=== PATIENT | female | born 1990 | race Caucasian/White ===

== ENCOUNTER 2019-03-02 11:04 | Emergency (ER) | payer BC ==
[2019-03-02 11:12] VITALS: BP 131/85; PULSE 77; RESP 16; TEMP 98.1
[2019-03-02 12:17] LABS: Appearance,Urine Clear (Clear); Bilirubin,Urine Negative (Negative); Blood,Urine Negative (Negative); Color,Urine Light Yellow; Glucose,Urine (UA) Negative (Negative); Ketones,Urine Negative (Negative); Leukocyte Esterase,Urine Negative (Negative); Nitrite,Urine Negative (Negative); Protein,Urine Negative (Negative); Specific Gravity,Urine 1.002 (1.001-1.035); Urobilinogen,Urine <2.0 mg/dL (<2.0)
--- NOTE | 2019-03-02 12:43 | ED ---
Female Urogenital HPI - General Chief complaint: Vaginal Bleeding Stated complaint: early /spotting Time Seen by Provider: 03/02/19 11:30 Source: patient, RN notes reviewed Mode of arrival: ambulatory Limitations: no limitations - History of Present Illness Initial comments: 29-year-old female presents emergency Department with chief complaint of vaginal bleeding early . Patient states started started on Saturday but has been very light. Patient states that she has very minimal cramping type pain. Patient states that she has not follow-up with her [employer] at this time. Patient did contact him and recommended to come emergency department. Patient denies any constipation or diarrhea no dysuria no hematuria. Patient is A0 Last Menstrual Period: 01/25/19 - Related Data Home Medications Medication Instructions Recorded Confirmed Control 1 tab PO DAILY 10/30/14 10/30/14 Allergies Allergy/AdvReac Type Severity Reaction Status Date / Time No Known Allergies Allergy Verified 03/02/19 11:11 Review of Systems ROS Statement: Those systems with pertinent positive or pertinent negative responses have been documented in the HPI. ROS Other: All systems not noted in ROS Statement are negative. Past Medical History Past Medical History: No Reported History Additional Past Medical History / Comment(s): Abnormal Pap smears, genital HSV History of Any Multi-Drug Resistant Organisms: None Reported Past Surgical History: No Surgical Hx Reported Past Psychological History: No Psychological Hx Reported Smoking Status: Never smoker Past Alcohol Use History: None Reported Past Drug Use History: None Reported General Exam Limitations: no limitations General appearance: alert, in no apparent distress Head exam: Present: atraumatic, normocephalic, normal inspection Eye exam: Present: normal appearance, PERRL, EOMI. Absent: scleral icterus, conjunctival injection, periorbital swelling Respiratory exam: Present: normal lung sounds bilaterally. Absent: respiratory distress, wheezes, rales, rhonchi, stridor Cardiovascular Exam: Present: regular rate, normal rhythm, normal heart sounds. Absent: systolic murmur, diastolic murmur, rubs, gallop, clicks GI/Abdominal exam: Present: soft, normal bowel sounds. Absent: distended, tenderness, guarding, rebound, rigid Back exam: Absent: CVA tenderness (R), CVA tenderness (L) Neurological exam: Present: alert, oriented X3 Skin exam: Present: warm, dry, intact, normal color. Absent: rash Course Vital Signs 03/02/19 11:09 Temperature 98.1 F Pulse Rate 77 Respiratory 16 Rate Blood Pressure 131/85 O2 Sat by Pulse 100 Oximetry Medical Decision Making - Medical Decision Making Ultrasound does not show definite IUP, beta hCG is 1129. Patient will have repeat hCG in 2 days. Patient diagnosed with threatened miscarriage patient does not require RhoGAM as she is AB+. - Lab Data Lab Results 03/02/19 03/02/19 03/02/19 Range/Units 11:55 11:55 11:55 HCG, Quant 1169.2 mIU/mL Urine Color Light Yellow Urine Appearance Clear (Clear) Urine pH 6.0 (5.0-8.0) Ur Specific [place] 1.002 (1.001-1.035) Urine Protein Negative (Negative) Urine Glucose (UA) Negative (Negative) Urine Ketones Negative (Negative) Urine Blood Negative (Negative) Urine Nitrite Negative (Negative) Urine Bilirubin Negative (Negative) Urine Urobilinogen <2.0 (<2.0) mg/dL Ur Leukocyte Esterase Negative (Negative) Blood Type AB Positive Blood Type Recheck AB Pos Bld Type Recheck Status No Disposition Clinical Impression: Threatened miscarriage Disposition: HOME SELF-CARE Condition: Stable Instructions (If sedation given, give patient instructions): Threatened Miscarriage (ED) Additional Instructions: Please return to the Emergency Department if symptoms worsen or any other concerns. Is patient prescribed a controlled substance at d/c from ED?: No Referrals: Bernard Humphrey MD [Primary Care Provider] - 1-2 days Time of Disposition: 13:24
--- NOTE | 2019-03-02 13:02 | US ---
EXAMINATION TYPE: Transabdominal DATE OF EXAM: 03/02/2019 12:51 PM COMPARISON: NONE CLINICAL HISTORY: Bleeding in . cramping and bleeding in early OB, EXAM PERFORMED: OBTA/OBTV EXAM MEASUREMENTS: GESTATIONAL AGE / DATING Physician Established: Not yet established Dates by LMP: (5 weeks/1 days) EDC: 11/01/2019 Dates by First Scan: No previous this is first scan Dates by Current Scan for: No IUP seen at this time MATERNAL ANATOMY Uterus: 8.6 x 4.9 x 4.7cm, retroverted Right Ovary: 2.6 x 1.8 x 2.2cm Left Ovary: 2.0 x 1.2 x 1.0cm Post CDS / Adnexa: varicose vessels seen, wnl Presence of free fluid: no Presence of corpus luteal cyst: yes on the right = 2.5cm Presence of subchorionic bleed: no GESTATION / SURVEY IUP: No IUP seen at this time Date of LMP: 01/25/2019 Beta HcG (if available): pending IMPRESSION: 1. No definable intrauterine visualized. If there is a positive beta-hCG then differential diagnosis would include normal too early to detect, missed or ectopic . Correlate with serial beta hCG and pelvic ultrasound as clinically warranted.
== END 2019-03-02 13:42 | disposition home or self-care (01) ==
LOC: EC 11:04
DX: O20.0 Threatened abortion (principal); Z67.30 Type AB blood, Rh positive; Z3A.01 Less than 8 weeks gestation of pregnancy
CPT/HCPCS: 36415; 76801; 76817; 81003; 84702; 86900; 86901; 99284

== ENCOUNTER → 2019-03-04 | Outpatient (CLI) | payer BC | END | disposition home or self-care (01) | LOC: LABWHC1 13:43 | PROVIDERS: ATTEND Physician Assistant | DX: O20.0 Threatened abortion (principal) | CPT/HCPCS: 36415; 84702 ==

== ENCOUNTER 2019-04-09 11:15 | Emergency (ER) | payer BC ==
[2019-04-09] MEDS ORDERED: ACETAMINOPHEN TAB 500 MG TAB PO STA (12:14)
[2019-04-09] MEDS ORDERED: SODIUM CHLORIDE 0.9% 1,000 ML IV STA (12:14)
--- NOTE | 2019-04-09 12:16 | ED ---
General Adult HPI - General Chief complaint: Abdominal Pain Stated complaint: 11 wks /cramping/vaginal bleeding Time Seen by Provider: 04/09/19 11:56 Source: patient, RN notes reviewed Mode of arrival: ambulatory Limitations: no limitations - History of Present Illness Initial comments: Patient 29-year-old female who is G2, P1 presented to the emergency room today with a chief complaint of vaginal bleeding that started when she was at work thi s morning. She does admit that she had some lower abdominal cramping. She had some increased bleeding. States bleeding has somewhat slow down at this time but still experiencing some cramping lower abdomen. Patient does not that she did have a previous ultrasound in this showing good IUP. Patient denies any other complaints or symptoms currently. Patient denies any recent fever, chills, shortness of breath, chest pain, back pain, nausea or vomiting, headaches or visual changes, or any other complaints. - Related Data Home Medications Medication Instructions Recorded Confirmed Control 1 tab PO DAILY 10/30/14 10/30/14 Allergies Allergy/AdvReac Type Severity Reaction Status Date / Time No Known Allergies Allergy Verified 04/09/19 11:31 Review of Systems ROS Statement: Those systems with pertinent positive or pertinent negative responses have been documented in the HPI. ROS Other: All systems not noted in ROS Statement are negative. Past Medical History Past Medical History: No Reported History Additional Past Medical History / Comment(s): Abnormal Pap smears, genital HSV History of Any Multi-Drug Resistant Organisms: None Reported Past Surgical History: No Surgical Hx Reported Past Psychological History: No Psychological Hx Reported Smoking Status: Never smoker Past Alcohol Use History: None Reported Past Drug Use History: None Reported General Exam - General Exam Comments Initial Comments: General: The patient is awake and alert, in no distress, and does not appear acutely ill. Neck: The neck is supple Cardiovascular: There is a regular rate and rhythm. No murmur, rub or gallop is appreciated. Respiratory: Lungs are clear to auscultation, respirations are non-labored, breath sounds are equal. No wheezes, stridor, rales, or rhonchi. Gastrointestinal: Abdomen soft on palpation. Does have tenderness in the lower abdomen on palpation. Rebound, guarding. Musculoskeletal: Normal ROM, no tenderness. Neurological: A&O x 3. CN II-XII intact, There are no obvious motor or sensory deficits. Coordination appears grossly intact. Speech is normal. Skin: Skin is warm and dry and no rashes or lesions are noted. Psychiatric: Cooperative, appropriate mood & affect, normal judgment. Limitations: no limitations Course Vital Signs 04/09/19 11:31 Temperature 97.8 F Pulse Rate 100 Respiratory 16 Rate Blood Pressure 128/81 O2 Sat by Pulse 100 Oximetry Medical Decision Making - Medical Decision Making Reexamined at this times resting covered. Patient does admit that the bleeding has slowed down. She states she's not had a change pain here in emergency room. Patient admits to some cramping lower abdomen. Patient did have some which does show some IUP measuring 10 weeks 1 day. Heart rate 170. There is a subchorionic bleed that is seen. Patient's Rh+. Blood work is stable. Patient's vitals are stable. Case discussed with attending physician Dr. Cristina. Patient will be discharged home to follow-up with GLASS TECHNICIAN/INSTALLER over the next 2 days. Advised return if any symptoms increase worsen. She states understanding and is in agreement. - Lab Data Result diagrams: 04/09/19 12:00 04/09/19 12:00 Lab Results 04/09/19 04/09/19 04/09/19 Range/Units 12:00 12:00 12:00 WBC 7.8 (3.8-10.6) k/uL RBC 4.60 (3.80-5.40) m/uL Hgb 13.7 (11.4-16.0) gm/dL Hct 39.5 (34.0-46.0) % MCV 85.8 (80.0-100.0) fL MCH 29.8 (25.0-35.0) pg MCHC 34.7 (31.0-37.0) g/dL RDW 13.1 (11.5-15.5) % Plt Count 328 (150-450) k/uL Neutrophils % 72 % Lymphocytes % 22 % Monocytes % 3 % Eosinophils % 1 % Basophils % 0 % Neutrophils # 5.6 (1.3-7.7) k/uL Lymphocytes # 1.8 (1.0-4.8) k/uL Monocytes # 0.2 (0-1.0) k/uL Eosinophils # 0.1 (0-0.7) k/uL Basophils # 0.0 (0-0.2) k/uL Sodium 135 L (137-145) mmol/L Potassium 3.9 (3.5-5.1) mmol/L Chloride 101 (98-107) mmol/L Carbon Dioxide 23 (22-30) mmol/L Anion Gap 11 mmol/L BUN 11 (7-17) mg/dL Creatinine 0.54 (0.52-1.04) mg/dL Est GFR (CKD-EPI)AfAm >90 (>60 ml/min/1.73 sqM) Est GFR (CKD-EPI)NonAf >90 (>60 ml/min/1.73 sqM) Glucose 85 (74-99) mg/dL Calcium 9.7 (8.4-10.2) mg/dL Total Bilirubin 0.6 (0.2-1.3) mg/dL AST 29 (14-36) U/L ALT 23 (4-34) U/L Alkaline Phosphatase 54 (38-126) U/L Total Protein 7.6 (6.3-8.2) g/dL Albumin 4.6 (3.5-5.0) g/dL Urine Color Urine Appearance (Clear) Urine pH (5.0-8.0) Ur Specific [place] (1.001-1.035) Urine Protein (Negative) Urine Glucose (UA) (Negative) Urine Ketones (Negative) Urine Blood (Negative) Urine Nitrite (Negative) Urine Bilirubin (Negative) Urine Urobilinogen (<2.0) mg/dL Ur Leukocyte Esterase (Negative) Ur Squamous Epith Cells (0-4) /hpf Urine Bacteria (None) /hpf Urine Mucus (None) /hpf Blood Type AB Positive Blood Type Recheck AB Pos Bld Type Recheck Status No 04/09/19 Range/Units 12:00 WBC (3.8-10.6) k/uL RBC (3.80-5.40) m/uL Hgb (11.4-16.0) gm/dL Hct (34.0-46.0) % MCV (80.0-100.0) fL MCH (25.0-35.0) pg MCHC (31.0-37.0) g/dL RDW (11.5-15.5) % Plt Count (150-450) k/uL Neutrophils % % Lymphocytes % % Monocytes % % Eosinophils % % Basophils % % Neutrophils # (1.3-7.7) k/uL Lymphocytes # (1.0-4.8) k/uL Monocytes # (0-1.0) k/uL Eosinophils # (0-0.7) k/uL Basophils # (0-0.2) k/uL Sodium (137-145) mmol/L Potassium (3.5-5.1) mmol/L Chloride (98-107) mmol/L Carbon Dioxide (22-30) mmol/L Anion Gap mmol/L BUN (7-17) mg/dL Creatinine (0.52-1.04) mg/dL Est GFR (CKD-EPI)AfAm (>60 ml/min/1.73 sqM) Est GFR (CKD-EPI)NonAf (>60 ml/min/1.73 sqM) Glucose (74-99) mg/dL Calcium (8.4-10.2) mg/dL Total Bilirubin (0.2-1.3) mg/dL AST (14-36) U/L ALT (4-34) U/L Alkaline Phosphatase (38-126) U/L Total Protein (6.3-8.2) g/dL Albumin (3.5-5.0) g/dL Urine Color Colorless Urine Appearance Clear (Clear) Urine pH 6.0 (5.0-8.0) Ur Specific [place] 1.003 (1.001-1.035) Urine Protein Negative (Negative) Urine Glucose (UA) Negative (Negative) Urine Ketones Negative (Negative) Urine Blood Small H (Negative) Urine Nitrite Negative (Negative) Urine Bilirubin Negative (Negative) Urine Urobilinogen <2.0 (<2.0) mg/dL Ur Leukocyte Esterase Negative (Negative) Ur Squamous Epith Cells <1 (0-4) /hpf Urine Bacteria Occasional H (None) /hpf Urine Mucus Rare H (None) /hpf Blood Type Blood Type Recheck Bld Type Recheck Status Disposition Clinical Impression: Vaginal bleeding during , Subchorionic hematoma in first trimester Disposition: HOME SELF-CARE Condition: Good Instructions (If sedation given, give patient instructions): Threatened Miscarriage (ED) Additional Instructions: Please follow-up with GLASS TECHNICIAN/INSTALLER over the next 2 days. Return to emergency room if any symptoms increase or worsen or for any concerns. Is patient prescribed a controlled substance at d/c from ED?: No Referrals: Bernard Humphrey MD [Primary Care Provider] - 1-2 days María Elder MD [STAFF PHYSICIAN] - 1-2 days Time of Disposition: 14:01
[2019-04-09 12:43] LABS: Basophils % (A) 0 %; Eosinophils # (A) 0.1 k/uL (0-0.7); Eosinophils % (A) 1 %; HCT 39.5 % (34.0-46.0); HGB 13.7 gm/dL (11.4-16.0); Lymphocytes # (A) 1.8 k/uL (1.0-4.8); Lymphocytes % (A) 22 %; MCH 29.8 pg (25.0-35.0); MCHC 34.7 g/dL (31.0-37.0); MCV 85.8 fL (80.0-100.0); Mean Platelet Volume 7.2; Monocytes # (A) 0.2 k/uL (0-1.0); Monocytes % (A) 3 %; Neutrophils # (A) 5.6 k/uL (1.3-7.7); Neutrophils % (A) 72 %; Platelet Count 328 k/uL (150-450); RDW 13.1 % (11.5-15.5); WBC 7.8 k/uL (3.8-10.6)
[2019-04-09 12:44] LABS: Appearance,Urine Clear (Clear); Bacteria,Urine Occasional /hpf; Bilirubin,Urine Negative (Negative); Blood,Urine Small (Negative); Color,Urine Colorless; Glucose,Urine (UA) Negative (Negative); Ketones,Urine Negative (Negative); Leukocyte Esterase,Urine Negative (Negative); Mucus,Urine Rare /hpf; Nitrite,Urine Negative (Negative); Protein,Urine Negative (Negative); Specific Gravity,Urine 1.003 (1.001-1.035); Squamous Epithelial Cell,Urine <1 /hpf (0-4); Urobilinogen,Urine <2.0 mg/dL (<2.0)
[2019-04-09 13:00] LABS: ALT 23 U/L (4-34); AST 29 U/L (14-36); African American GFR (CKD) >90 (>60 ml/min/1.73 sqM); Albumin 4.6 g/dL (3.5-5.0); Alkaline Phosphatase 54 U/L (38-126); Anion Gap 11 mmol/L; Blood Urea Nitrogen 11 mg/dL (7-17); Calcium 9.7 mg/dL (8.4-10.2); Carbon Dioxide 23 mmol/L (22-30); Chloride 101 mmol/L (98-107); Glucose 85 mg/dL (74-99); Non-African American GFR(CKD) >90 (>60 ml/min/1.73 sqM); Potassium 3.9 mmol/L (3.5-5.1); Sodium 135 mmol/L (137-145); Total Bilirubin 0.6 mg/dL (0.2-1.3); Total Protein 7.6 g/dL (6.3-8.2)
--- NOTE | 2019-04-09 13:06 | US ---
EXAMINATION TYPE: Transabdominal DATE OF EXAM: 04/09/2019 12:56 PM COMPARISON: US CLINICAL HISTORY: abd pain. Bleeding and cramping with . EXAM PERFORMED: Transabdominal (TA) EXAM MEASUREMENTS: GESTATIONAL AGE / DATING Physician Established: Not yet established Dates by LMP: 01/25/2019 (10 weeks/4 days) EDC: 11/01/2019 Dates by First Scan: No IUP identified. Dates by Current Scan for: (10 weeks/1 days) EDC: 11/04/2019 MATERNAL ANATOMY Uterus: 12.6 x 6.7 x 7.6 cm Right Ovary: not identified Left Ovary: not identified Post CDS / Adnexa: wnl Presence of free fluid: none Presence of subchorionic bleed: hypoechoic area adjacent to sac measures 2.7 x 1.1 x 1.3 cm. GESTATION / SURVEY CRL: 3.3 cm (10 weeks/1 days) Yolk Sac (normal less than 6mm): 0.5 cm Heart Rate: 170 bpm Rhythm: Normal IUP: Viable IUP Date of LMP: 01/25/2019 Viable IUP that correlates with LMP. IMPRESSION: Viable IUP 10 weeks 1 day with a heart rate of 170 bpm. Findings are suspicious for a 2.7 cm subchori onic hemorrhage.
[2019-04-09 14:19] VITALS: BP 101/69; PULSE 97; RESP 18; TEMP 98
== END 2019-04-09 14:19 | disposition home or self-care (01) ==
LOC: EC 11:15
DX: O20.8 Other hemorrhage in early pregnancy (principal); O99.89 Other specified diseases and conditions complicating pregnancy, childbirth and the puerperium; R10.30 Lower abdominal pain, unspecified; Z67.90 Unspecified blood type, Rh positive; Z3A.10 10 weeks gestation of pregnancy
CPT/HCPCS: 36415; 76801; 80053; 81001; 84702; 85025; 86900; 86901; 96360; 99284

== ENCOUNTER 2019-10-21 22:38 | Outpatient (CLI) | payer BC ==
[2019-10-22 00:19] VITALS: BP 117/89; PULSE 81; RESP 16; TEMP 98.1
--- NOTE | 2019-10-23 09:27 | P.MSEPDOC ---
Presenting Problems - Arrival Data Date of Arrival on Unit: 10/22/19 Time of Arrival on Unit: 22:38 Mode of Transport: Wheelchair - Complaint OB-Reason for Admission/Chief Complaint: Possible Onset of Labor Medical History - Information : 2 Para: 1 Term: 1 : 0 Abortions: Spontaneous or Elective: 0 Number of Living Children: 1 - Gestational Age Gestational Age by BERRY (wks/days): 38 Weeks and 4 Days Review of Systems - Review of Systems Constitutional: No problems Breast: No problems ENT: No problems Cardiovascular: No problems Respiratory: No problems Gastrointestinal: No problems Genitourinary: No problems Musculoskeletal: No problems Neurological: No problems Skin: No problems Vital Signs - Temperature Temperature: 98.1 F Temperature Source: Oral - Pulse Right Brachial Pulse Rate: 81 Pulse Assessment Method: Automatic Cuff - Respirations Respiratory Rate: 16 Oxygen Delivery Method: Room Air O2 Sat by Pulse Oximetry: 97 - Blood Pressure Right Arm Blood Pressure: 117/89 Blood Pressure Mean: 98 Blood Pressure Source: Automatic Cuff Medical Screen Scoring (Pre) - Cervical Exam Dilation: 1-3 cm = 1 Membranes: Intact - Uterine Contractions Frequency: > 5 minutes apart = 1 Duration: N/A Intensity: N/A - Maternal Vital Signs Maternal Temperature: N/A Maternal Blood Pressure: N/A Signs of Preeclampsia: N/A Maternal Respirations: N/A - Maternal Trauma Maternal Trauma: N/A - Assessment - Baby A Baseline FHR: 145 Heart Rate - NICHD Category: Category I (Normal) = 0 NST: Reactive Position: N/A Station: N/A - Total Score - Baby A Total Score - Baby A: 2 - Total Score - Baby B Total Score - Baby B: 2 - Total Score - Baby C Total Score - Baby C: 2 - Level of Risk - Baby A Level of Risk - Baby A: Low (0-5) - Level of Risk - Baby B Level of Risk - Baby B: Low (0-5) - Level of Risk - Baby C Level of Risk - Baby C: Low (0-5) Physician Notification (Pre) - Physician Notified Physician Notified Date: 10/22/19 Physician Notified Time: 23:00 New Order Received: Yes - Notification Comment Comment: Dr. Mcwilliams given report on pt. Vag exam of /3. VS WNL. Orders recieved to. recheck pt after one hour, if no change to d/c pt to home. Disposition - Disposition OB Disposition: Discharge to home Discharge Date: 10/22/19 Discharge Time: 00:10 I agree with the RN Medical Screening Exam: Yes Risk & Benefit of care provided described in d/c instruction: Yes Diagnosis: FALSE LABOR AT OR AFTER 37 COMPLETED WEEKS OF GESTATION
== END 2019-10-22 00:10 | disposition home or self-care (01) ==
LOC: FBPOP 22:38
PROVIDERS: ATTEND Obstetrics & Gynecology Obstetrics
DX: O47.1 False labor at or after 37 completed weeks of gestation (principal); Z3A.38 38 weeks gestation of pregnancy
CPT/HCPCS: 59025; 99213

== ENCOUNTER 2019-10-29 22:50 | Outpatient (CLI) | payer BC ==
[2019-10-29 23:07] VITALS: BP 116/62; PULSE 76; RESP 16; TEMP 97.5
--- NOTE | 2019-12-09 07:39 | P.MSEPDOC ---
Presenting Problems - Arrival Data Date of Arrival on Unit: 10/30/19 Time of Arrival on Unit: 22:50 Mode of Transport: Ambulatory - Complaint OB-Reason for Admission/Chief Complaint: Possible Onset of Labor Medical History - Information : 2 Para: 1 Term: 1 : 0 Abortions: Spontaneous or Elective: 0 Number of Living Children: 1 - Gestational Age Gestational Age by BERRY (wks/days): 39 Weeks and 5 Days Review of Systems - Review of Systems Constitutional: No problems Breast: No problems ENT: No problems Cardiovascular: No problems Respiratory: No problems Gastrointestinal: No problems Genitourinary: No problems Musculoskeletal: No problems Neurological: No problems Skin: No problems Vital Signs - Temperature Temperature: 97.5 F Temperature Source: Temporal Artery Scan - Pulse Right Brachial Pulse Rate: 76 Pulse Assessment Method: Automatic Cuff - Respirations Respiratory Rate: 16 Oxygen Delivery Method: Room Air O2 Sat by Pulse Oximetry: 96 - Blood Pressure Right Arm Blood Pressure: 116/62 Blood Pressure Mean: 80 Blood Pressure Source: Automatic Cuff Medical Screen Scoring (Pre) - Cervical Exam Dilation: 1-3 cm = 1 Membranes: Intact - Uterine Contractions Frequency: > 5 minutes apart = 1 - Maternal Trauma Maternal Trauma: N/A - Assessment - Baby A Baseline FHR: 135 Heart Rate - NICHD Category: Category I (Normal) = 0 NST: Reactive Position: N/A - Total Score - Baby A Total Score - Baby A: 2 - Total Score - Baby B Total Score - Baby B: 2 - Total Score - Baby C Total Score - Baby C: 2 - Level of Risk - Baby A Level of Risk - Baby A: Low (0-5) - Level of Risk - Baby B Level of Risk - Baby B: Low (0-5) - Level of Risk - Baby C Level of Risk - Baby C: Low (0-5) Physician Notification (Pre) - Physician Notified Physician Notified Date: 10/30/19 Physician Notified Time: 23:40 New Order Received: Yes - Notification Comment Comment: Discharge to home keep appt on Saturday unless needs to come back for labor, give FBP discharge instruction sheet Disposition - Disposition OB Disposition: Discharge to home Discharge Date: 10/29/19 Discharge Time: 23:45 I agree with the RN Medical Screening Exam: No Physician's MSE Comment: insufficient documentation Risk & Benefit of care provided described in d/c instruction: No Diagnosis: term
== END 2019-10-29 23:45 | disposition home or self-care (01) ==
LOC: FBPOP 22:50
PROVIDERS: ATTEND Obstetrics & Gynecology
DX: Z34.93 Encounter for supervision of normal pregnancy, unspecified, third trimester (principal); Z3A.39 39 weeks gestation of pregnancy
CPT/HCPCS: 59025; 99213

== ENCOUNTER 2019-11-01 14:34 | Inpatient (IN) | payer BC ==
[2019-11-05] MEDS ORDERED: LIDOCAINE 0.5% (PF) 5 MG/ML (50 ML SDV) SQ PRN (06:06)
[2019-11-05] MEDS ORDERED: TERBUTALINE 1 MG/ML VIAL SQ PRN (06:06)
[2019-11-05] MEDS ORDERED: METHYLERGONOVINE 0.2 MG/ML 1 ML AMP IM PRN (06:06)
[2019-11-05] MEDS ORDERED: OXYTOCIN 10 UNIT/ML 1 ML VIAL IM PRN (06:06)
[2019-11-05] MEDS ORDERED: CARBOPROST TROMETHAMINE 250 MCG/ML 1 ML AMP IM PRN (06:06)
[2019-11-05] MEDS ORDERED: OXYTOCIN 30 UNITS/500 ML NS 30 UNIT in SALINE 1 500ML.BAG IV SCH (06:15)
[2019-11-05] MEDS: LACTATED RINGERS 1,000 ML IV SCH ×3 (06:25→10:45)
[2019-11-05 06:46] LABS: Basophils % (A) 0 %; Eosinophils # (A) 0.2 k/uL (0-0.7); Eosinophils % (A) 1 %; HCT 41.6 % (34.0-46.0); HGB 14.3 gm/dL (11.4-16.0); Lymphocytes # (A) 1.9 k/uL (1.0-4.8); Lymphocytes % (A) 16 %; MCH 31.1 pg (25.0-35.0); MCHC 34.4 g/dL (31.0-37.0); MCV 90.2 fL (80.0-100.0); Mean Platelet Volume 7.9; Monocytes # (A) 0.4 k/uL (0-1.0); Monocytes % (A) 3 %; Neutrophils # (A) 9.3 k/uL (1.3-7.7); Neutrophils % (A) 78 %; Platelet Count 221 k/uL (150-450); RBC 4.61 m/uL (3.80-5.40); RDW 13.5 % (11.5-15.5); WBC 11.9 k/uL (3.8-10.6)
[2019-11-05] MEDS ORDERED: fentaNYL (PF) 50 MCG/ML 5 ML AMP ONE (09:25)
[2019-11-05] MEDS ORDERED: ROPIVACAINE 5MG/ML 20ML VIAL ONE (09:25)
[2019-11-05] MEDS ORDERED: SODIUM CHLORIDE 0.9% 100 ML BAG ONE (09:25)
--- NOTE | 2019-11-05 11:28 | P.HPOB ---
History of Present Illness H&P Date: 11/05/19 Chief Complaint: Postdates This is a 29-year-old 2 para 1 woman with an estimated due date of 11/01/2019. She is admitted for postdates induction of labor at 40-4/7 weeks' gestation. She has been on Valtrex HSV suppression since 36 weeks with no active lesions or prodromal symptoms. Otherwise her has been uncomplicated. Please see the record for laboratory data. Her blood type is AB+ and she is group B strep negative Past Medical History Past Medical History: No Reported History Additional Past Medical History / Comment(s): Abnormal Pap smears, genital HSV History of Any Multi-Drug Resistant Organisms: None Reported Past Surgical History: No Surgical Hx Reported Additional Past Surgical History / Comment(s): Breast Implants Past Anesthesia/Blood Transfusion Reactions: No Reported Reaction Past Psychological History: No Psychological Hx Reported Smoking Status: Never smoker Past Alcohol Use History: None Reported Additional Past Alcohol Use History / Comment(s): EC BAT on 08/20/2013 @ 2132 = 0.097 Past Drug Use History: None Reported - Past Family History Father Family Medical History: Cancer Additional Family Medical History / Comment(s): Colon Cancer Medications and Allergies Home Medications Medication Instructions Recorded Confirmed Type Pnv,Calcium 72/Iron/Folic Acid 1 tab PO ONCE 10/21/19 11/05/19 History [ Plus Tablet] Allergies Allergy/AdvReac Type Severity Reaction Status Date / Time No Known Allergies Allergy Verified 11/05/19 06:01 Exam Vital Signs Temp Pulse Resp BP 11/05/19 06:01 97.1 F L 77 16 127/81 Intake and Output 11/04/19 11/05/19 11/05/19 22:59 06:59 14:59 Other: Weight 59.421 kg Targeted physical exam is performed. On examination the external genitalia there is no obvious HSV lesions noted. On cervical exam the cervix is the 3-1/2 cm dilated, 60% effaced and the vertex in the -2 station. Artificial rupture of membranes is undertaken and clear fluid is noted. heart tones are category 1. She is marsha every 2-4 minutes. Results Result Diagrams: 11/05/19 06:22 Abnormal Lab Results - Last 24 Hours (Table) 11/05/19 Range/Units 06:22 WBC 11.9 H (3.8-10.6) k/uL Neutrophils # 9.3 H (1.3-7.7) k/uL Assessment and Plan (1) Post-dates Current Visit: Yes Status: Acute Code(s): O48.0 - POST-TERM SNOMED Code(s): 26249768 Plan: 29-year-old 2 para 1 woman admitted for postdates induction of labor at 40-4/7 weeks' gestation. Artificial rupture of membranes and Pitocin induction per protocol. She is group B strep negative and Rh+. She may have an epidural anesthetic upon request. status currently reassuring by external monitoring.
[2019-11-05] MEDS ORDERED: ZOLPIDEM 5 MG TAB PO PRN (11:31)
[2019-11-05] MEDS ORDERED: ACETAMINOPHEN TAB 325 MG TAB PO PRN (11:31)
[2019-11-05] MEDS ORDERED: diphenhydrAMINE 25 MG CAP PO PRN (11:31)
[2019-11-05] MEDS ORDERED: diphenhydrAMINE 50 MG CAP PO PRN (11:31)
[2019-11-05] MEDS ORDERED: diphenhydrAMINE 50 MG/ML 1 ML VIAL IVP PRN ×2 (11:31)
[2019-11-05] MEDS ORDERED: LANOLIN CREAM 5 GM TUBE TOPICAL PRN (11:31)
[2019-11-05] MEDS ORDERED: HYDROCORTISONE 2.5% RECTAL CREAM 30 GM TUBE RECTAL PRN (11:31)
[2019-11-05] MEDS ORDERED: BENZOCAINE/MENTHOL SPRAY 1 GM/SPRAY AEROSOL TOPICAL PRN (11:31)
[2019-11-05] MEDS ORDERED: SIMETHICONE 80 MG CHEWABLE PO PRN (11:31)
--- NOTE | 2019-11-05 11:31 | P.PROBDLV ---
Vaginal Delivery Note - . Vaginal Delivery Note: Findings: Male infant in the vertex left occiput anterior position with a nuchal cord 1. Apgars of 8 at 1 minute and 9 at 5 minutes weighing 7 lbs. 15 oz., 3610 g. Second-degree midline episiotomy. Intact, three-vessel cord placenta. EBL 250 mL's. Delivery summary: This is a 29-year-old 2 para 1 woman who is admitted for induction of labor at 40-4/7 weeks' gestation. She received Pitocin induction of labor with artificial rupture of membranes. On admission and with rupture she was approximate 4 cm dilated at 7:15 AM. She did request and receive an epidural anesthetic and reached complete cervical dilation by 10:50 AM. With she was repositioned, prepped and draped in the modified Rodney position. She had an approximately 25 minute second stage to deliver a liveborn male . Second-degree midline episiotomy was cut prior to delivery secondary to concerns for possible shoulder dystocia. She was also prophylactically placed in the 4 Rodney position. Of note there was an audible pop at the time of delivery of the head. A nuchal cord 1 was reduced and the anterior followed by the posterior shoulders were actually delivered rapidly and without difficulty. The rest the infant was delivered onto the field. The nose and mouth were bulb suctioned. The was placed on the maternal abdomen where eventually the cord was clamped and cut. Apgars were 8 at 1 minute and 9 at 5 minutes and weight was 7 lbs. 15 oz. An intact, three- vessel cord placenta was then expressed after a 3 minute third stage of labor. The vagina was inspected and second-degree laceration without extension was noted. This was further infused with lidocaine and repaired with 3-0 Vicryl suture in the usual fashion. The rest of the vagina was inspected as was the cervix and no further lacerations were noted. The uterus was massaged and was noted to be approximately 2 cm below the umbilicus. The patient did receive Pitocin following the delivery of the placenta. All counts were correct and both mother and were doing well post delivery in the room.
[2019-11-05] MEDS ORDERED: OXYTOCIN 20 UNITS/1000 ML NS 1,000 ML IV SCH (11:45)
[2019-11-05] MEDS: IBUPROFEN 600 MG TAB PO PRN (20:20)
[2019-11-06] MEDS: SENNOSIDES-DOCUSATE SODIUM 1 EACH TAB PO SCH ×2 (01:08→11:34)
[2019-11-06 06:14] LABS: Basophils % (A) 0 %; Eosinophils # (A) 0.1 k/uL (0-0.7); Eosinophils % (A) 1 %; HCT 38.2 % (34.0-46.0); Lymphocytes # (A) 2.2 k/uL (1.0-4.8); Lymphocytes % (A) 15 %; MCV 91.2 fL (80.0-100.0); Mean Platelet Volume 8.4; Monocytes # (A) 0.4 k/uL (0-1.0); Monocytes % (A) 3 %; Neutrophils # (A) 11.5 k/uL (1.3-7.7); Neutrophils % (A) 80 %; Platelet Count 190 k/uL (150-450); RBC 4.19 m/uL (3.80-5.40); RDW 13.8 % (11.5-15.5); WBC 14.4 k/uL (3.8-10.6)
[2019-11-06] MEDS: IBUPROFEN 600 MG TAB PO PRN (06:17)
[2019-11-06 08:00] VITALS: BP 109/73; PULSE 66; RESP 15; TEMP 98
--- NOTE | 2019-11-06 10:33 | P.DS ---
Providers Date of admission: 11/05/19 05:57 Expected date of discharge: 11/06/19 Attending physician: María Elder Primary care physician: Bernard Humphrey - Discharge Diagnosis(es) (1) Post-dates Current Visit: Yes Status: Acute (2) Normal spontaneous vaginal delivery Current Visit: No Status: Acute (3) Nuchal cord Current Visit: No Status: Acute (4) Perineal laceration with delivery, second degree Current Visit: No Status: Acute Hospital Course: This is a 29-year-old 2 now para 2 woman who is admitted at 40-4/7 weeks' gestation for postdates induction of labor with a favorable cervix. See the admission history and physical for details. Following admission the patient received Pitocin induction of labor as well as artificial rupture of membranes per protocol. She is group B strep negative. She received an epidural anesthetic for analgesia. She went on to have a rapid and uncomplicated delivery of a liveborn male over a second-degree midline episiotomy. There was a nuchal cord 1. Weight was 7 lbs. 15 oz. and Apgars were 8 at 1 minute and 9 at 5 minutes. Please see the delivery summary for details. The patient's course was unremarkable. By the morning of day #1 she was nursing without difficulty. She had moderate lochia. Her postoperative labs were within normal limits. She was ambulating and voiding without difficulty. She was therefore discharged home with routine instructions for care and follow-up. Patient Condition at Discharge: Good Plan - Discharge Summary New Discharge Prescriptions: No Action Pnv,Calcium 72/Iron/Folic Acid [ Plus Tablet] 1 tab PO ONCE Discharge Medication List Pnv,Calcium 72/Iron/Folic Acid [ Plus Tablet] 1 tab PO ONCE 10/21/19 [History] Follow up Appointment(s)/Referral(s): María Elder MD [STAFF PHYSICIAN] - 6 Weeks Activity/Diet/Wound Care/Special Instructions: Follow-up in the office in 6 weeks . Call with any concerning signs or symptoms including heavy vaginal bleeding, severe abdominal pain, fever greater than 101, swelling or redness of the lower extremities, foul vaginal discharge, or signs of depression. Nothing in the vagina for 6 weeks after delivery, specifically no intercourse. May use [id number] Tylenol and/or ibuprofen as needed for pain. Discharge Disposition: HOME SELF-CARE
== END 2019-11-06 12:47 | disposition home or self-care (01) | DRG 806 ==
LOC: 4FBP 11-05 05:57
PROVIDERS: ADMIT Obstetrics & Gynecology; ATTEND Obstetrics & Gynecology
PROC: 10E0XZZ Delivery of Products of Conception, External Approach (ICD-10-PCS; principal; 2019-11-05)
PROC: 0W8NXZZ Division of Female Perineum, External Approach (ICD-10-PCS; 2019-11-05)
PROC: 3E033VJ Introduction of Other Hormone into Peripheral Vein, Percutaneous Approach (ICD-10-PCS; 2019-11-05)
PROC: 10907ZC Drainage of Amniotic Fluid, Therapeutic from Products of Conception, Via Natural or Artificial Opening (ICD-10-PCS; 2019-11-05)
PROC: 3E0R3BZ Introduction of Anesthetic Agent into Spinal Canal, Percutaneous Approach (ICD-10-PCS; 2019-11-05)
DX: O48.0 Post-term pregnancy (principal); O98.32 Other infections with a predominantly sexual mode of transmission complicating childbirth; Z37.0 Single live birth; O69.81X0 Labor and delivery complicated by cord around neck, without compression, not applicable or unspecified; A60.00 Herpesviral infection of urogenital system, unspecified; Z3A.40 40 weeks gestation of pregnancy; Z79.899 Other long term (current) drug therapy; Z98.82 Breast implant status; Z80.0 Family history of malignant neoplasm of digestive organs
CPT/HCPCS: 85025; 86850; 86900; 86901